=== PATIENT | female | born 1940 | race Caucasian/White ===

== ENCOUNTER → 2018-07-31 | Outpatient (CLI) | payer OTHER, MEDICARE ==
[~2018-07-31] VITALS: Ht 165.1 cm; Wt 50.8 kg
[~2018-07-31] MED LIST: CALCIUM 500 +1 EAC5 PO; CENTRUM SILVER1 EAC4 PO; ESTRADIOL 1 MG T1 M1 PO; FISH OIL 1,001000 M2 PO; HAIR, SKIN AND1 EAC1 PO; LISINOPRIL5 MG PO; OCUVITE SOFTGE1 EAC1 PO; PROBIOTIC1 EAC1 PO; ZOCOR20 MG PO
--- NOTE | ~2018-07-31 | P ---
[facility] [place] [address] PROCEDURE REPORT Name: HESHAM GIMENEZ Room #: REG [facility]#: [id number] Admission: 07/31/18 Attend Phys: Chris Dawson MD Discharge: Date of : 42 Report #: [id number] THIS REPORT FOR: //name// CC: Chris Fan BRIEF HISTORY: The patient is a 77-year-old woman with change in bowel habits. She had had regular bowel habits in the past and now is having multiple loose mucousy stools daily. She has not had rectal bleeding or abdominal pain. PREOPERATIVE DIAGNOSIS: Change in bowel habits. POSTOPERATIVE DIAGNOSES: Moderate left-sided diverticulosis coli. MEDICATIONS: Deep sedation with propofol for anesthesia. SPECIMENS: 1. Random biopsies, proximal colon, rule out colitis. 2. Random biopsies distal colon, rule out colitis. ESTIMATED BLOOD LOSS: 3 mL. PROCEDURE: Colonoscopy to cecum and terminal ileum with biopsy. FINDINGS: Prior to propofol sedation, procedure of colonoscopy discussed with the patient as well as potential risks and its complications. She indicates she understands and desires to proceed. DESCRIPTION OF PROCEDURE: With the patient in left lateral decubitus position, digital examination was completed, which revealed no abnormalities. Subsequently, the Olympus video colonoscope was introduced in the rectum, advanced under direct vision to the cecum. Done with minimal difficulty. The cecum was identified by the ileocecal valve and the appendiceal orifice. I was able to visualize the distal segment of terminal ileum, which was inspected and noted to be unremarkable. At that point, the scope was slowly withdrawn and careful circumferential views obtained. As we withdrew the scope, the prep was excellent. The mucosa was within normal limits, normal vascular pattern, normal light reflex. As we withdrew the scope, she was noted to have normal colonic mucosa throughout the entire colon. No inflammatory changes were seen. Also, no neoplastic lesions were seen. Multiple random biopsies were obtained as we withdrew the scope. No abnormalities were noted until we reached the sigmoid colon, at which point she was noted to have moderately severe diverticular disease and endoscopic evidence of diverticulitis. Scope was withdrawn in the rectum and no mucosal abnormalities were seen. I was unable to fully retroflex the scope in the rectum. Scope was withdrawn. Repeat digital rectal examination revealed no abnormalities. The patient tolerated the procedure [address] [address] PROCEDURE REPORT Name: HESHAM GIMENEZ Room #: REG [facility]#: [id number] Admission: 07/31/18 Attend Phys: Chris Dawson MD Discharge: Date of : 42 Report #: [id number]. CONDITION OF THE PATIENT UPON DISCHARGE: Following the procedure, the patient drowsy, arousable and conversant and will be discharged home when fully ambulatory INSTRUCTIONS TO THE PATIENT AND FAMILY AT THE TIME OF DISCHARGE: No neoplastic or inflammatory changes were seen. We will follow up on the path and make further recommendations. If she has microscopic colitis, she may benefit from either mesalamine or budesonide. In the interval time, she may use Kaopectate as needed. Another option would be use of Imodium. If her diarrhea does not resolve, she is to return to see me in followup in the office. With regards to screening, no neoplastic lesions were seen, and therefore typical recommendation will be 10 years. However, at this point in life, routine screening colonoscopy may be of minimal benefit to her. Last colonoscopy was 5 years ago. Withdrawal time from the cecum was 10 minutes and 2 seconds. <ELECTRONICALLY SIGNED> By: Chris Dawson MD 08/01/18 1158 [id number] 05 Chris Dawson MD /nt
--- NOTE | ~2018-07-31 | PATH ---
[facility] [address] [place] [address] PATHOLOGY RPT PROCEDURE Name: BHAVANA GOLDEN Room #: REG [facility] [place].#: [id number] Admission: 07/31/18 Date of : 42 Discharge: Report #: [id number] Path Case #: [id number] [facility] Accession Number: [id number] . 01 Material submitted: . PART A: RANDOM BX PROX COLON R/O COLITIS R.T. DIARRHEA PART B: RANDOM BX DISTAL COLON AND RECTUM R/O COLITIS . 01 Clinical history: . Pre-OP DX: Diarrhea Post-OP DX: Diverticulosis . 02 Diagnosis: A. Large intestinal mucosa, random proximal colon, endoscopic biopsy: - Mild focal cryptitis. - Negative for microscopic colitis. - Negative for dysplasia. . B. Large intestinal mucosa, random distal colon and rectum, endoscopic biopsy: - Mild focal cryptitis. - Negative for microscopic colitis. - Negative for dysplasia. . (IUV:mml; 08/01/18) QLM/08/01/2018 . 02 Comment: Sections of the colonic mucosa designated "random proximal colon, random distal colon and rectum" show focal cryptitis, and a moderately cellular lamina propria composed predominantly of lymphocytes and plasma cells and occasional eosinophils. Surface ulceration is not identified. There are no crypt abscesses, granulomas or viral inclusions. Given the description, the differential diagnosis includes acute focal self-limited colitis, reaction to bowel preparation, medication-induced colitis, diverticulitis as well as early inflammatory bowel disease. Please correlate with clinical as well as endoscopic findings. . (IUV:mml; 08/01/18) . 02 Electronically signed: . Janie Bower MD, Pathologist NPI- [id number] . 01 Gross description: . A. Received in formalin labeled "Bhavana Golden random BX proximal colon, rule out colitis r.t. diarrhea," are multiple segments of mclain soft tissue [address] [address] PATHOLOGY RPT PROCEDURE Name: BHAVANA GOLDEN S Room #: [facility]#: [id number] Admission: 07/31/18 Date of : 42 Discharge: Report #: [id number] Path Case #: [id number] measuring 1.3 x 0.6 x 0.2 cm in aggregate dimensions. The specimen is filtered and entirely submitted in cassette A1. Colon . B. Received in formalin labeled "[place], Bhavana, random BX distal colon and rectum, rule out colitis," are multiple segments of mclain soft tissue measuring 1.5 x 0.3 x 0.1 cm in aggregate dimensions. The specimen is filtered and entirely submitted in cassette B1. (TSD; 07/31/2018) TOB/TOB . 02 Pathologist provided ICD-10: K62.89 . 02 CPT . 683073, 499640 Specimen Comment: A courtesy copy of this report has been sent to Specimen Comment: [phone], . Specimen Comment: Report sent to / DR MADDOX Performed at: [address], [place], [place] [id number] MD Leon Patino MD Phone: [phone] Performed at: [address] [id number] MD Janie Bower MD Phone: [phone]
== END | disposition home or self-care (01) ==
LOC: GI 07:00
DX: K62.89 Other specified diseases of anus and rectum (principal); K57.30 Diverticulosis of large intestine without perforation or abscess without bleeding; K57.32 Diverticulitis of large intestine without perforation or abscess without bleeding; I10 Essential (primary) hypertension; E78.5 Hyperlipidemia, unspecified; Z88.0 Allergy status to penicillin; Z88.8 Allergy status to other drugs, medicaments and biological substances; Z79.899 Other long term (current) drug therapy; Z90.89 Acquired absence of other organs; Z98.890 Other specified postprocedural states; Z90.710 Acquired absence of both cervix and uterus; Z98.42 Cataract extraction status, left eye; Z98.41 Cataract extraction status, right eye
CPT/HCPCS: 62110; 62900